=== PATIENT | female | born 1960 | race Caucasian/White ===

== ENCOUNTER → 2024-05-11 09:01 | Outpatient (BNVA) | payer MEDICARE, SELFPAY | PROVIDERS: Referring Provider Nurse Practitioner; Visit Provider Internal Medicine | DX: E07.9 Disorder of thyroid, unspecified (principal); E06.3 Autoimmune thyroiditis; E11.9 Type 2 diabetes mellitus without complications; E78.5 Hyperlipidemia, unspecified | CPT/HCPCS: 84439; 84443; 95251; 99205 ==